=== PATIENT | male | born 1945 | race Caucasian/White ===

== ENCOUNTER 2016-04-18 09:01 | Emergency (ER) | payer MEDICARE, OTHER ==
--- NOTE | 2016-04-18 10:20 | UC ---
Upper Extremity HPI - HPI Summary HPI Summary: had a polyvalent pneumococcal vaccine 3d ago. Had redness and swelling within 8 hrs, this has increased over the following days. Mildly painful, feels very hot , hurts to move arm around. He has had fever to 100.8, but also has had some mild cold symptoms. He did get another pneumococcal vaccine last year, but was advised to get this one that covered more strains - History of Current Complaint Chief Complaint: Nola Stated Complaint: LT ARM SWELLING Time Seen by Provider: 04/18/16 09:41 Hx Obtained From: Patient Onset/Duration: Gradual Onset, Lasting Days - 3 Severity Initially: Mild Severity Currently: Mild Location Of Pain: Is Discrete @ - left upper arm Character: Dull, Aching, Stiffness Aggravating Factor(s): Flexion, Extension, Abduction Alleviating Factor(s): Ice, OTC Meds Associated Signs And Symptoms: Positive: Swelling, Redness - Allergies/Home Medications Allergies/Adverse Reactions: Allergies Allergy/AdvReac Type Severity Reaction Status Date / Time Morphine Allergy Rash And Verified 04/18/16 09:54 Itching PMH/Surg Hx/FS Hx/Imm Hx Endocrine History Of: Reports: Thyroid Disease Cardiovascular History Of: Reports: Hypertension - Surgical History Surgical History: Yes Surgery Procedure, Year, and Place: L4-5 spinal surgery 1995. Thyroidectomy 1994. R knee ACL repair 2009 - Family History Known Family History: Negative: Hypertension - Social History Occupation: Retired Lives: With Family Alcohol Use: Daily Alcohol Amount: "a drink or 2 every day" Substance Use Type: None Smoking Status (MU): Never Smoked Tobacco Review of Systems Constitutional: Fever - to 100.8, Chills Skin: Other - redness Eyes: Negative ENT: Negative Respiratory: Negative Cardiovascular: Negative Gastrointestinal: Negative Genitourinary: Negative Motor: Negative Neurovascular: Negative Musculoskeletal: Negative Neurological: Negative Psychological: Negative All Other Systems Reviewed And Are Negative: Yes Physical Exam Triage Information Reviewed: Yes Appearance: Well-Appearing, No Pain Distress, Well-Nourished Vital Signs: Initial Vital Signs Temp 98.0 F 04/18/16 09:56 Pulse 63 04/18/16 09:56 Resp 16 04/18/16 09:56 BP 129/61 04/18/16 09:56 Pulse Ox 100 04/18/16 09:56 Vital Signs Reviewed: Yes Eye Exam: Normal Neck exam: Normal Respiratory Exam: Normal Cardiovascular Exam: Normal Musculoskeletal Exam: Normal Neurological Exam: Normal Psychological Exam: Normal Skin Exam: Other - left upper arm with large patch of reddened, slightly swollen skin from deltoid to elbow. Not circumferential, just on outside of arm. Increased warmth. Mild tenderness to palpation. Can't see where the injection site was, no drainage Upper Extremity Course/Dx - Course Course Of Treatment: Most consistent with inflammatory reaction to vaccine. However, he has had fever and notes increasing redness. He will monitor the area , start antibiotic only if redness progresses along with fever. Otherwise, Motrin and ice - Differential Dx/Diagnosis Provider Diagnoses: inflammatory reaction to vaccination Discharge - Discharge Plan Condition: Stable Disposition: HOME Prescriptions: Sulfamethox/Trimethoprim DS* [Bactrim DS 800/160 TAB*] 1 tab PO BID #20 tab Referrals: Emmanuel Bobby DO [Primary Care Provider] - Additional Instructions: Your arm redness and swelling and tenderness is most consistent with a very brisk inflammatory reaction to the pneumococcal vaccine. This is a good sign that your body is building immunity against this cause of pneumonia. Sometimes injection sites can get infected. If you continue to have worsening pain, swelling, redness, or have consistent fevers or vomiting, then the possibility of infection is greater. In that case, start the antibiotic. If the redness fades away over the next few days, you don't need the antibiotic. Put ice on the area and take ibuprofen 600 mg two or three times a day.
[2016-04-18 10:22] VITALS: BP 129/61
== END 2016-04-18 10:25 | disposition home or self-care (01) ==
LOC: UCCORT 09:01
DX: T88.1XXA Other complications following immunization, not elsewhere classified, initial encounter (principal); M79.89 Other specified soft tissue disorders; R50.9 Fever, unspecified; T50.A95A Adverse effect of other bacterial vaccines, initial encounter; Y84.8 Other medical procedures as the cause of abnormal reaction of the patient, or of later complication, without mention of misadventure at the time of the procedure; E07.9 Disorder of thyroid, unspecified; I10 Essential (primary) hypertension; Z88.5 Allergy status to narcotic agent
CPT/HCPCS: 99212; G0463

== ENCOUNTER 2017-08-05 14:29 | Emergency (ER) | payer MEDICARE, OTHER ==
--- OUTSIDE RECORDS SUMMARY | 2017-08-05 14:51 | XMS REPORT ---
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 Payers Type Date Identification Numbers Payment Provider Subscriber Medicare Primary Effective: Policy Number: Medicare Isidro Zuluaga 2012 [id number] PayID: [id number] [address] [place] [address] Medigap Part B Policy Number: Lifetime Benefit Miguel Zuluaga [id number] Solution Group Number: [id number] [address] PayID: [place] [address] Workers Compensation Onset: 2004 Policy Number: [facility] Isidro Zuluaga [id number] [address] Commercial Effective: 2003 Policy Number: [facility] [place] Not Martinene Lyle Zuluaga [id number] Use Expires: 2014 Group Number: [id number] [address] PayID: [id number] [address] Problems Date Description Provider Status Onset: 10/02/2012 Impotence of organic origin Emmanuel Bobby DO Active Onset: 06/09/2007 Spinal stenosis in cervical region Eulogio oJe MD Active Onset: 06/14/2005 Toxic uninodular goiter Eulogio Joe MD Active Onset: 12/14/2004 Family history of malignant neoplasm of Eulogio Joe MD Active gastrointestinal tract Onset: 06/08/2004 Benign essential hypertension Eulogio Joe MD Active Onset: 06/08/2004 Strain of supraspinatus muscle AND/OR Eulogio Joe MD Active tendon Onset: 06/08/2004 Gastroesophageal reflux disease Eulogio Joe MD Active Onset: 06/08/2004 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 Mother Cancer, Colon age 60's onset. age 80's dementia Mother Alzheimer's Disease Children 2 Siblings None Social History Type Date Description Comments Marital Status Occupation Retired currently parttime/seasonal temporary for [employer]. initial retired.04/24.working 10-12 months/year. Cigarette Use Former Cigarette Smoker Smoking Patient is a former smoker Allergies, Adverse Reactions, Alerts Date Description Reaction Status Severity Comments 06/08/2004 Morphine active Medications Medication Date Status Form Strength Qnty SIG Indications Ordering Provider Prednisone 07/25/ Active Tablets 10mg 60tabs 2 tablets M35.3 Kaminski, 2017 by mouth Micheal, daily DO Tizanidine HCL 06/27/ Active Capsules 2mg 28caps 2 capusles M54.31 Kaminski, 2017 by mouth Micheal, at bedtime DO Naproxen 06/27/ Active Tablets 500mg 30tabs 1 tablet M54.31 Kaminski, 2017 by mouth Micheal, twice DO daily with food Tumeric 04/21/ Active Kaminski, 2017 Micheal, DO Probiotic 04/21/ Active Capsules Gordy, Acidophilus 2017 Micheal, DO Multivitamins 07/19/ Active Capsules 1 by mouth Kanu, 2014 every day DO Emmanuel Saw [place] 07/19/ Active Capsules 160mg 30caps every day N40.1 Kanu , 2014 DO Emmanuel Meet Red Fish 07/19/ Active 1 Tablet E78.1 Kanu, Oil 2014 By Mouth Emmanuel, Daily. DO Lisinopril 05/02/ Active Tablets 30mg 90tabs take one I10 Gordy 2014 tablet by essence Burton DO every day Viagra 06/08/ Active Tablets 50mg 18tabs take one N52.9 Gordy 2004 tablet by Micheal, mouth if DO needed Aspirin Low / Active Chewtabs 81mg 1 PO qd Kanu, Dose 0000 Emmanuel, DO Prednisone 07/15/ Hx Tablets 10mg 6tabs 2 tablets Kaminski, 2017 - by mouth Micheal, 07/25/ for 3 days DO 2017 Prednisone 07/11/ Hx Tablets 10mg 54tabs 6 tablets Kaminski, 2017 - by mouth x Micheal, 07/25/ 3 days DO 2017 then decrease by 1 pill every 3 days until gone Prednisone 06/30/ Hx Tablets 10mg 21tabs 6 tablets Kaminski, 2017 - by mouth Micheal, 07/06/ for 1 day DO 2017 then decrease by 1 tablet daily until gone Omeprazole 12/11/ Hx Capsules 20mg 90caps Take One K21.9 Kanu 2015 - DR Capsule By Emmanuel, 04/15/ Mouth DO 2016 Every Day Naproxen Sodium 09/17/ Hx Tablets 550mg 60tabs take one M54.2 Kanu 2015 - tablet by Emmanuel, 04/21/ mouth DO 2017 twice a day with food prn Omeprazole 06/08/ Hx Capsules 20mg 90caps take one Kanu 2004 - capsule by Emmanuel, 10/12/ mouth DO 2015 every day Immunizations CPT Code Status Date Vaccine Reaction Lot # [id number] Given 04/15/2016 Pneumococcal 23 Immunization Im inj completed, Pt [id number] Adult Or Immunosuppressed tolerated well Patient 60903 Given 03/25/2015 Prevnar 13 Pneumococal Im inj completed, Pt [id number] Conjugate Vaccine tolerated well 52066 Given 07/05/2012 Zoster (Zostavax) Given At Pharmacy RA/222 66604 Given 09/17/2011 Tdap (Adacel) Ages 7 And Above Only 15352 Given 12/14/2004 Afluria Or Fluvirin Flu Vac Intramuscular 22026 Given 09/22/2003 Tetanus And Diptheria Toxoids For Adult Use-preservative free Vital Signs Date Vital Result Comment 07/25/2017 Weight 185.00 lb Heart Rate 68 /min BP Systolic 140 mmHg BP Diastolic 70 mmHg Respiratory Rate 18 /min Height 68 inches 5'8" BMI (Body Mass Index) 28.1 kg/m2 07/11/2017 Body Temperature 98.1 F Weight 186.00 lb Heart Rate 68 /min BP Systolic 120 mmHg BP Diastolic 68 mmHg Respiratory Rate 18 /min Height 68 inches 5'8" BMI (Body Mass Index) 28.3 kg/m2 06/27/2017 Weight 189.00 lb Heart Rate 64 /min BP Systolic 130 mmHg BP Diastolic 82 mmHg Respiratory Rate 18 /min Height 68 inches 5'8" BMI (Body Mass Index) 28.7 kg/m2 04/21/2017 Weight 184.00 lb Heart Rate 70 /min BP Systolic 140 mmHg BP Diastolic 80 mmHg BP Systolic Recheck 130 mmHg BP Diastolic Recheck 76 mmHg Respiratory Rate 18 /min Height 68 inches 5'8" BMI (Body Mass Index) 28.0 kg/m2 10/13/2016 Weight 185.38 lb Heart Rate 68 /min 72 Reg BP Systolic 126 mmHg BP Diastolic 76 mmHg BP Systolic Recheck 128 mmHg BP Diastolic Recheck 78 mmHg Respiratory Rate 18 /min Height 68 inches 5'8" BMI (Body Mass Index) 28.2 kg/m2 04/15/2016 Weight 183.00 lb Heart Rate 78 /min 72 Reg BP Systolic 110 mmHg BP Diastolic 72 mmHg BP Systolic Recheck 120 mmHg BP Diastolic Recheck 72 mmHg Respiratory Rate 18 /min Height 68 inches 5'8" BMI (Body Mass Index) 27.8 kg/m2 10/13/2015 Weight 183.00 lb Heart Rate 72 /min 72 Reg BP Systolic 150 mmHg BP Diastolic 82 mmHg BP Systolic Recheck 120 mmHg BP Diastolic Recheck 80 mmHg Respiratory Rate 18 /min 09/18/2015 Weight 180.56 lb Heart Rate 68 /min BP Systolic 110 mmHg BP Diastolic 70 mmHg Respiratory Rate 18 /min 03/25/2015 Weight 185.06 lb Heart Rate 78 /min BP Systolic 134 mmHg BP Diastolic 80 mmHg BP Systolic Recheck 120 mmHg BP Diastolic Recheck 80 mmHg Respiratory Rate 18 /min Height 67.25 inches 5'7.25" BMI (Body Mass Index) 28.8 kg/m2 07/19/2014 Weight 183.00 lb Heart Rate 66 /min 72 Reg BP Systolic 134 mmHg BP Diastolic 72 mmHg BP Systolic Recheck 122 mmHg BP Diastolic Recheck 78 mmHg Respiratory Rate 18 /min 02/07/2014 BP Systolic 120 mmHg BP Diastolic 80 mmHg 02/07/2014 Weight 194.00 lb Heart Rate 78 /min 72 Reg BP Systolic 130 mmHg BP Diastolic 80 mmHg Respiratory Rate 18 /min Height 68 inches 5'8" 10/05/2013 BP Systolic 130 mmHg BP Diastolic 80 mmHg 10/05/2013 Weight 188.00 lb Heart Rate 66 /min 72 Reg BP Systolic 132 mmHg BP Diastolic 88 mmHg Respiratory Rate 18 /min Results Test Date Test Result H/L Range Note Laboratory test finding 07/11/2017 Ebv Early Ag Igg NEGATIVE (Neg) 1 Ebv Nuclear Ag Igg POSITIVE (Neg) 2 Ebv Vca Igg POSITIVE (Neg) 3 Ebv Vca Igm NEGATIVE (Neg) 4 Anti-Streptolysn O <200 IU/mL (0-200) 5 Laboratory test finding 07/11/2017 Esr 27 mm/hr High 0-15 CRP (C-Reactive) 5.10 mg/dL High 0.00-0.75 TSH 1.61 uIU/mL 0.35-4.94 Vitamin D 25 Hydroxy 30 ng/mL 30-100 6 Comprehensive Met Panel-[facility] 07/11/2017 Sodium 141 mmol/L 135-146 7 Potassium 4.2 mmol/L 3.5-5.2 Chloride# 104 mmol/L 97-110 8 Carbon Dioxide 28 mmol/L 24-34 Glucose 133 mg/dL High 70-105 BUN 15 mg/dL 6-26 Creatinine 0.8 mg/dL 0.5-1.4 Calcium 8.9 mg/dL 8.5-10.2 Total Protein 6.3 g/dL 6.0-8.0 Albumin 3.7 g/dL 3.6-4.9 Globulin 2.6 g/dL 2.0-3.5 A/G Ratio 1.4 Ratio 1.0-2.2 Total Bilirubin 0.4 mg/dL 0.1-1.3 Alkaline Phosphatase 72 U/L 24-140 Alt 12 U/L 3-42 Ast 12 U/L 8-42 Christina Egfr >60 >60 9 Non Christina Egfr >60 >60 10 Anion Gap 9 mmol/L 5-15 11 Lyme Igm/Igg AB -RL 07/11/2017 Lyme Igm/Igg AB @ NEGATIVE (Neg) 12 Laboratory test finding 07/11/2017 Uric Acid 5.4 mg/dL 2.6-8.4 Lyme Igm/Igg AB -RL 06/27/2017 Lyme Igm/Igg AB @ NEGATIVE (Neg) 13 [facility] 06/27/2017 WBC 8.3 K/uL 4.1-11.0 RBC 4.87 M/uL 4.60-6.10 Hemoglobin 14.4 gm/dL 13.5-18.0 Hematocrit 42.5 % 41.0-53.0 MCV 87.3 fL 80.0-97.0 MCH 29.5 pg 27.0-32.0 MCHC 33.8 g/dL 32.0-36.0 RDW 13.6 % 11.5-14.5 PLT Count 268 K/ul 140-400 MPV 8.0 FL 7.1-10.7 Neutrophil 65.6 % 35.0-75.0 Lymphocyte 23.7 % 16.0-52.0 Monocyte 9.1 % 2.0-10.0 Eosinophil 1.2 % 0.0-5.0 Basophil 0.4 % 0.0-4.0 Abs Neutrophils 5.4 K/uL 2.1-8.0 Abs Lymphocytes 2.0 K/uL 0.8-5.5 Abs Monocytes 0.7 K/uL 0.1-1.0 Abs Eosinophils 0.1 K/uL 0.0-0.5 Abs Basophils 0.0 K/uL 0.0-0.3 Laboratory test finding 06/27/2017 Esr 46 mm/hr High 0-15 CRP (C-Reactive) 4.28 mg/dL High 0.00-0.75 CCP Antibody Igg Negative Negative Rheumatoid Factor <10.0 IU/mL 0.0-10.0 Comprehensive Met Panel-[facility] 06/27/2017 Sodium 142 mmol/L 135-146 14 Potassium 4.0 mmol/L 3.5-5.2 Chloride# 104 mmol/L 97-110 15 Carbon Dioxide 29 mmol/L 24-34 Glucose 104 mg/dL 70-105 BUN 15 mg/dL 6-26 Creatinine 0.8 mg/dL 0.5-1.4 Calcium 9.1 mg/dL 8.5-10.2 Total Protein 6.6 g/dL 6.0-8.0 Albumin 4.1 g/dL 3.6-4.9 Globulin 2.5 g/dL 2.0-3.5 A/G Ratio 1.6 Ratio 1.0-2.2 Total Bilirubin 0.5 mg/dL 0.1-1.3 Alkaline Phosphatase 66 U/L 24-140 Alt 12 U/L 3-42 Ast 13 U/L 8-42 Christina Egfr >60 >60 16 Non Christina Egfr >60 >60 17 Anion Gap 9 mmol/L 5-15 18 Sravanthi Screen With Reflex-[facility] 06/27/2017 Sravanthi Screen NEGATIVE Negative dsDNA IgG 0.90 Negative 19 Hemoglobin A1c 04/08/2017 Hemoglobin A1c 5.4 % 4.1-5.9 20 Estimated Average Glucose Calc 108 mg/dL 71-140 20 Laboratory test finding 04/08/2017 PSA 2.010 ng/mL 0.000-4.000 20, 21 CBC With Auto Diff 04/08/2017 WBC 5.5 K/uL 4.1-11.0 20 RBC 4.99 M/uL 4.60-6.10 20 Hemoglobin 14.9 gm/dL 13.5-18.0 20 Hematocrit 43.7 % 41.0-53.0 20 MCV 87.6 fL 80.0-97.0 20 MCH 30.0 pg 27.0-32.0 20 MCHC 34.2 g/dL 32.0-36.0 20 RDW 13.7 % 11.5-14.5 20 PLT Count 221 K/ul 140-400 20 MPV 8.2 FL 7.1-10.7 20 Neutrophil 42.9 % 35.0-75.0 20 Lymphocyte 42.7 % 16.0-52.0 20 Monocyte 9.7 % 2.0-10.0 20 Eosinophil 4.2 % 0.0-5.0 20 Basophil 0.5 % 0.0-4.0 20 Abs Neutrophils 2.4 K/uL 2.1-8.0 20 Abs Lymphocytes 2.4 K/uL 0.8-5.5 20 Abs Monocytes 0.5 K/uL 0.1-1.0 20 Abs Eosinophils 0.2 K/uL 0.0-0.5 20 Abs Basophils 0.0 K/uL 0.0-0.3 20 Laboratory test finding 04/08/2017 TSH 2.43 uIU/mL 0.35-4.94 20 Free T4 0.96 ng/dL 0.70-1.48 20 Basic (BMP) 04/08/2017 Sodium 142 mmol/L 135-146 20, 22 Potassium 3.9 mmol/L 3.5-5.2 20 Chloride# 105 mmol/L 97-110 20, 23 Carbon Dioxide 30 mmol/L 24-34 20 Glucose 109 mg/dL High 70-105 20 BUN 17 mg/dL 6-26 20 Creatinine 0.9 mg/dL 0.5-1.4 20 Calcium 9.1 mg/dL 8.5-10.2 20 Non Christina Egfr >60 >60 20, 24 Christina Egfr >60 >60 20, 25 Anion Gap 7 mmol/L 5-15 20, 26 Lipid 04/08/2017 Cholesterol 171 mg/dL 50-199 20 Triglycerides 100 mg/dL 30-200 20 HDL 51 mg/dL 29-71 20, 27 Chol/ HDL Ratio 3.4 ratio Low 4.0-6.7 20 VLDL 20 mg/dL 2-29 20 LDL (Calc) 100 mg/dL High 20-99 20, 28 Basic (BMP) 10/06/2016 Sodium 142 mmol/L 135-146 20, 29 Potassium 4.0 mmol/L 3.5-5.2 20 Chloride# 107 mmol/L 97-110 20, 30 Carbon Dioxide 27 mmol/L 24-34 20 Glucose 114 mg/dL High 70-105 20 BUN 24 mg/dL 6-26 20 Creatinine 0.9 mg/dL 0.5-1.4 20 Calcium 9.0 mg/dL 8.5-10.2 20 Non Christina Egfr >60 >60 20, 31 Christina Egfr >60 >60 20, 32 Anion Gap 8 mmol/L 7-16 20, 33 CBC With Auto Diff 10/06/2016 WBC 5.8 K/uL 4.1-11.0 20 RBC 4.99 M/uL 4.60-6.10 20 Hemoglobin 14.5 gm/dL 13.5-18.0 20 Hematocrit 44.3 % 41.0-53.0 20 MCV 88.8 fL 80.0-97.0 20 MCH 29.0 pg 27.0-32.0 20 MCHC 32.7 g/dL 32.0-36.0 20 RDW 14.1 % 11.5-14.5 20 PLT Count 199 K/ul 140-400 20 Neutrophil 42.0 % 35.0-75.0 20 Lymphocyte 44.4 % 16.0-52.0 20 Monocyte 9.5 % 2.0-10.0 20 Eosinophil 3.4 % 0.0-5.0 20 Basophil 0.7 % 0.0-4.0 20 Abs Neutrophils 2.4 K/uL 2.1-8.0 20 Abs Lymphocytes 2.6 K/uL 0.8-5.5 20 Abs Monocytes 0.5 K/uL 0.1-1.0 20 Abs Eosinophils 0.2 K/uL 0.0-0.5 20 Abs Basophils 0.0 K/uL 0.0-0.3 20 Laboratory test finding 10/06/2016 TSH 3.21 uIU/mL 0.35-4.94 20 Free T4 0.77 ng/dL 0.70-1.48 20 Lipid 10/06/2016 Cholesterol 182 mg/dL 50-199 20 Triglycerides 99 mg/dL 30-150 20 HDL 53 mg/dL 40-71 20, 34 Chol/ HDL Ratio 3.4 ratio Low 4.0-6.7 20 VLDL 20 mg/dL 2-29 20 LDL (Calc) 109 mg/dL 20-129 20, 35 CBC With Auto Diff 04/08/2016 WBC 5.0 K/uL 4.1-11.0 20 RBC 4.89 M/uL 4.60-6.10 20 Hemoglobin 14.5 gm/dL 13.5-18.0 20 Hematocrit 42.9 % 41.0-53.0 20 MCV 87.7 fL 80.0-97.0 20 MCH 29.6 pg 27.0-32.0 20 MCHC 33.7 g/dL 32.0-36.0 20 RDW 13.5 % 11.5-14.5 20 PLT Count 208 K/ul 140-400 20 Neutrophil 41.4 % 35.0-75.0 20 Lymphocyte 45.5 % 16.0-52.0 20 Monocyte 8.8 % 2.0-10.0 20 Eosinophil 3.3 % 0.0-5.0 20 Basophil 1.0 % 0.0-4.0 20 Abs Neutrophils 2.1 K/uL 2.1-8.0 20 Abs Lymphocytes 2.3 K/uL 0.8-5.5 20 Abs Monocytes 0.4 K/uL 0.1-1.0 20 Abs Eosinophils 0.2 K/uL 0.0-0.5 20 Abs Basophils 0.0 K/uL 0.0-0.3 20 Basic (BMP) 04/08/2016 Sodium 137 mmol/L 134-142 20 Potassium 4.2 mmol/L 3.5-5.2 20 Chloride 105 mmol/L 97-109 20 Carbon Dioxide 27 mmol/L 24-34 20 Glucose 100 mg/dL 70-105 20 BUN 16 mg/dL 6-26 20 Creatinine 0.8 mg/dL 0.5-1.4 20 Calcium 8.8 mg/dL 8.5-10.2 20 Anion Gap 9 mmol/L 6-14 20 Non Christina Egfr >60 >60 20, 36 Christina Egfr >60 >60 20, 37 Laboratory test finding 04/08/2016 TSH 2.08 uIU/mL 0.35-4.94 20 Free T4 0.84 ng/dL 0.70-1.48 20 Lipid 04/08/2016 Cholesterol 161 mg/dL 50-199 20 Triglycerides 56 mg/dL 30-150 20 HDL 48 mg/dL 40-71 20, 38 Chol/ HDL Ratio 3.4 ratio Low 4.0-6.7 20 VLDL 11 mg/dL 2-29 20 LDL (Calc) 102 mg/dL 20-129 20, 39 Laboratory test finding 04/08/2016 PSA 0.880 ng/mL 0.000-4.000 20, 40 BMP (Basic) 02/24/2015 Glucose 101 mg/dL 74-106 BUN 11 mg/dL 7-18 Creatinine 0.9 mg/dL 0.6-1.3 Glom Filtration Rate, Estimate >60 mL/min >60 If >60 mL/min >60 41 BUN/Creat 12.2 ratio Sodium 140 mmol/L 136-145 Potassium 3.9 mmol/L 3.5-5.1 Chloride 106 mmol/L 98-107 Carbon Dioxide 30 mmol/L 21-32 Anion Gap 4 mEq/L Low 8-16 Calcium 8.2 mg/dL Low 8.5-10.1 Laboratory test finding 02/24/2015 Thyroid Stim Hormone 2.47 uIU/mL 0.36- 3.74 Free T4 0.87 ng/dL 0.76-1.46 Lipid Panel 02/24/2015 Cholesterol 178 mg/dL <200 42 Triglycerides 66 mg/dL <150 43 HDL Cholesterol 60 mg/dL >40 44 LDL-Cholesterol 105 mg/dL < 129 45 Laboratory test finding 02/24/2015 Prostate Specific Antigen 1.50 ng/mL 46 CBC With Auto Diff 02/24/2015 White Blood Count 4.9 K/uL 3.4-10.5 Red Blood Count 5.26 M/uL 4.20-5.80 Hemoglobin 15.7 gm/dL 12.8-17.0 Hematocrit 46.4 % 38.0-48.0 Mean Cell Volume 88.2 fl 80.0-96.0 Mean Corpuscular HGB 29.8 pg 27.0-33.0 Mean Corpuscular HGB Conc 33.8 g/dL 31.7-36.0 Platelet Count 208 K/uL 150-400 Red Cell Distri Width SD 44.7 fl 36-51 Red Cell Distri Width %CV 14.1 % 11.6-15.8 Mean Platelet Volume 10.0 fL 6.6-10.6 Neut% 44.0 % 33.0-73.0 Lymph % 44.0 % 17.0-56.0 [place] % 7.7 % 0.0-10.0 Eo% 3.5 % 0.0-5.0 Bas% 0.8 % 0.1-1.0 Neut# 2.16 K/uL 1.8-7.0 Lymph # 2.16 K/uL 1.8-7.0 [place] # 0.38 K/uL 0.0-0.8 Eos # 0.17 K/uL 0.0-0.5 Baso # 0.04 K/uL Low 0.1-0.2 CBC With Auto Diff 07/12/2014 WBC 4.9 K/uL 4.1-11.0 47 RBC 4.94 M/uL 4.60-6.10 47 Hemoglobin 14.8 gm/dL 13.5-18.0 47 Hematocrit 44.5 % 41.0-53.0 47 MCV 90.0 fL 80.0-97.0 47 MCH 29.9 pg 27.0-32.0 47 MCHC 33.3 g/dL 32.0-36.0 47 RDW 14.0 % 11.5-14.5 47 PLT Count 198 K/ul 140-400 47 Neutrophil 46.7 % 35.0-75.0 47 Lymphocyte 40.8 % 16.0-52.0 47 Monocyte 8.4 % 2.0-10.0 47 Eosinophil 3.5 % 0.0-5.0 47 Basophil 0.6 % 0.0-4.0 47 Abs Neutrophils 2.3 K/uL 2.1-8.0 47 Abs Lymphocytes 2.0 K/uL 0.8-5.5 47 Abmon 0.4 K/uL 0.1-1.0 47 Abs Eosinophils 0.2 K/uL 0.0-0.5 47 Abs Basophils 0.0 K/uL 0.0-0.3 47 Basic (BMP) 07/12/2014 Sodium 138 mmol/L 134-142 47 Potassium 4.1 mmol/L 3.5-5.2 47 Chloride 104 mmol/L 97-109 47 Carbon Dioxide 29 mmol/L 24-34 47 Glucose 101 mg/dL 70-105 47 BUN 17 mg/dL 6-26 47 Creatinine 0.9 mg/dL 0.5-1.4 47 Calcium 9.1 mg/dL 8.5-10.2 47 Anion Gap 9 mmol/L 6-14 47 Non Christina Egfr >60 >60 47, 48 Christina Egfr >60 >60 47, 49 Laboratory test finding 07/12/2014 TSH 2.64 uIU/mL 0.35-4.94 47 Free T4 0.84 ng/dL 0.70-1.48 47 Lipid 07/12/2014 Cholesterol 175 mg/dL 50-199 47 Triglycerides 52 mg/dL 30-150 47 HDL 55 mg/dL 40-71 47, 50 Chol/ HDL Ratio 3.2 ratio Low 4.0-6.7 47 VLDL 10 mg/dL 2-29 47 LDL (Calc) 110 mg/dL 20-129 47, 51 Laboratory test finding 09/28/2013 % Baso. 1.1 % 0.0-2.0 % Eos. 3.7 % 0.0-4.0 % Lymph 42 % 20-44 % [place] 7.6 % 2.0-10.0 % Leanna 46 % Low 50-70 Absolute Baso. 0.1 K/ul 0.0-0.3 Absolute Eos. 0.2 K/ul 0.0-0.5 Absolute Lymph. 2.6 K/ul 0.8-4.8 Absolute [place]. 0.5 K/ul 0.1-1.0 Absolute Leanna. 2.86 K/ul 2.05-7.63 BUN 19.0 mg/dL 9.0-21.0 BUN/Creat Ratio 23.8 ratio High 12.0-20.0 Calcium 9.1 mg/dL 8.7-10.5 Chloride 107.0 mmol/L 98.0-107.0 Co2 25.0 mmol/L 22.0-30.0 Creatinine-Serum 0.8 mg/dL 0.8-1.5 FT4 0.80 ng/dL 0.75-1.54 Glucose 110.0 mg/dL 75.0-110.0 HCT 46.9 % 37.0-51.0 HGB 15.4 Gm/dl 12.0-16.0 MCH 29.4 pg 26.0-32.0 MCHC 32.9 g/dL 31.0-36.0 MCV 89.6 Fl 80.0-97.0 MPV 6.9 fL 6.0-10.0 PLT 231 K/ul 140-440 PSA 0.8 ng/mL 0.0-4.0 Potasium 4.0 mmol/L 3.6-5.0 RBC 5.2 M/ul 4.2-6.3 RDW 12.7 % 11.5-14.5 Sodium 141.0 mmil/L 137.0-145.0 TSH 3.45 uIU/ml 0.50-6.00 WBC 6.2 K/ul 4.1-10.9 eGFR 103.1 Laboratory test finding 06/25/2013 % Baso. 1.2 % 0.0-2.0 % Eos. 2.5 % 0.0-4.0 % Lymph 41 % 20-44 % [place] 9.8 % 2.0-10.0 % Leanna 46 % Low 50-70 Absolute Baso. 0.1 K/ul 0.0-0.3 Absolute Eos. 0.2 K/ul 0.0-0.5 Absolute Lymph. 2.5 K/ul 0.8-4.8 Absolute [place]. 0.6 K/ul 0.1-1.0 Absolute Leanna. 2.81 K/ul 2.05-7.63 BUN 14.0 mg/dL 9.0-21.0 BUN/Creat Ratio 15.6 ratio 12.0-20.0 Calcium 9.5 mg/dL 8.7-10.5 Chloride 104.0 mmol/L 98.0-107.0 Co2 28.0 mmol/L 22.0-30.0 Creatinine-Serum 0.9 mg/dL 0.8-1.5 FT4 0.94 ng/dL 0.75-1.54 Glucose 110.0 mg/dL 75.0-110.0 HCT 48.3 % 37.0-51.0 HGB 15.9 Gm/dl 12.0-16.0 MCH 29.4 pg 26.0-32.0 MCHC 32.9 g/dL 31.0-36.0 MCV 89.4 Fl 80.0-97.0 MPV 6.4 fL 6.0-10.0 PLT 236 K/ul 140-440 Potasium 4.2 mmol/L 3.6-5.0 RBC 5.4 M/ul 4.2-6.3 RDW 12.6 % 11.5-14.5 Sodium 139.0 mmil/L 137.0-145.0 TSH 2.44 uIU/ml 0.50-6.00 WBC 6.1 K/ul 4.1-10.9 eGFR 90.0 Laboratory test finding 10/02/2012 Anion Gap 11 mEq/L 8-16 BUN 17 mg/dL 5-23 BUN/Creat 21.2 ratio Bas% 0.6 % 0.1-1.0 Baso # 0.04 K/uL Low 0.1-0.2 Calcium 8.7 mg/dL 8.5-10.1 Carbon Dioxide 28 mEq/L 18-29 Chloride 110 mmol/L High 98-107 Creatinine 0.8 mg/dL 0.5-1.4 Eo% 2.2 % 0.0-5.0 Eos # 0.16 K/uL 0.0-0.5 Free T4 0.94 ng/dL 0.71-1.85 Glom Filtration Rate, Estimate >60 mL/min >60 Glucose 85 mg/dL 76-115 Hematocrit 42.7 % 38.0-48.0 Hemoglobin 14.6 gm/dL 12.8-17.0 If >60 mL/min >60 52 Lymph # 2.60 K/uL 1.2-4.0 Lymph % 36.0 % 17.0-56.0 Magnesium 1.9 mg/dL 1.7-2.3 Mean Cell Volume 88.6 fl 80.0-96.0 Mean Corpuscular HGB 30.3 pg 27.0-33.0 Mean Corpuscular HGB Conc 34.2 g/dL 31.7-36.0 Mean Platelet Volume 10.7 fL High 6.6-10.6 [place] # 0.61 K/uL High 0.0-0.6 [place] % 8.4 % 0.0-10.0 Neut# 3.81 K/uL 1.8-7.0 Neut% 52.8 % 33.0-73.0 Platelet Count 233 K/uL 150-400 Potassium 3.9 mmol/L 3.5-5.1 Prostate-Specific Antigen 0.76 ng/mL 0.0-4.0 53 Red Blood Count 4.82 M/uL 4.20-5.80 Red Cell Distri Width %CV 13.4 % 11.6-15.8 Red Cell Distri Width SD 42.7 fl 36-51 Sodium 145 mmol/L 136-145 Thyroid Stim Hormone 3.10 uIU/mL 0.49-4.67 White Blood Count 7.2 K/uL 3.4-10.5 Testosterone,Free/Weakly 10/02/2012 Testosterone,%Free/Weakly 15.0 % 9.0- 46.0 Bound BND Testosterone,Free+Weakly Bound 40.0 ng/dL 40.0-250.0 54 Testosterone,Serum 267 ng/dL Low 348-1197 1 Unless otherwise specified, testing performed by [facility] [place] [address] 2 May indicate a current or previous infection. Unless otherwise specified, testing performed by [facility] [place] [address] 3 May indicate a current or previous infection. Unless otherwise specified, testing performed by [facility] [place] [address] 4 Unless otherwise specified, testing performed by [facility] [address] [place] [address] 5 Unless otherwise specified, [place] [address] 6 Clinical Guidelines for recommended serum 25(OH)Vitamin D Deficient at less than 20 ng/mL Insufficient at 20 to <30 ng/mL Sufficient at 30-100 ng/mL Toxicity at greater than 100 ng/mL 7 Updated reference range on new analyzer 8 Updated reference range on new analyzer 9 Concerning GFR Guidelines for Americans: Normal function or mild renal disease, if clinically at risk: >/=60 mL/min Moderately decreased: 30-59 Severely decreased: 15-29 Renal failure: <15 10 Concerning GFR Guidelines: Normal function or mild renal disease, if clinically at risk: >/=60 mL/min Moderately decreased: 30-59 Severely decreased: 15-29 Renal failure: <15 Glomerular Filtration Rate (GFR) is estimated based on the MDRD equation, which assumes a steady state for creatinine as recommended by the National Kidney Disease Education Program in conjunction with the National Institutes of Health and the National Kidney Foundation. Clinical conditions in which it may be necessary to measure GFR by using clearance methods include extremes of age and body size, severe malnutrition or obesity, diseases of skeletal muscle, paraplegia or quadriplegia, vegetarian diet, rapidly changing kidney function, and calculation of the dose of potentially toxic drugs that are excreted by the kidneys. 11 Updated Reference Range 12 A Negative serologic test for Lyme Disease indicates no serologic evidence of infection with B burgdorferi at the time this specimen was collected. A repeat specimen should be collected in 2 to 4 weeks if clinically indicated. Unless otherwise specified, [place] [address] 13 A Negative serologic test for Lyme Disease indicates no serologic evidence of infection with B burgdorferi at the time this specimen was collected. A repeat specimen should be collected in 2 to 4 weeks if clinically indicated. Unless otherwise specified, [place] [address] 14 Updated reference range on new analyzer 15 Updated reference range on new analyzer 16 Concerning GFR Guidelines for Americans: Normal function or mild renal disease, if clinically at risk: >/=60 mL/min Moderately decreased: 30-59 Severely decreased: 15-29 Renal failure: <15 17 Concerning GFR Guidelines: Normal function or mild renal disease, if clinically at risk: >/=60 mL/min Moderately decreased: 30-59 Severely decreased: 15-29 Renal failure: <15 Glomerular Filtration Rate (GFR) is estimated based on the MDRD equation, which assumes a steady state for creatinine as recommended by the National Kidney Disease Education Program in conjunction with the National Institutes of Health and the National Kidney Foundation. Clinical conditions in which it may be necessary to measure GFR by using clearance methods include extremes of age and body size, severe malnutrition or obesity, diseases of skeletal muscle, paraplegia or quadriplegia, vegetarian diet, rapidly changing kidney function, and calculation of the dose of potentially toxic drugs that are excreted by the kidneys. 18 Updated Reference Range 19 Interpretation: <0.5 -9 IU/ml Negative 10-15 IU/ml Equivocal >15.0 IU/ml Positive 20 SCHEDULE 1 WEEK PRIOR TO NEXT VISIT 21 Beginning 04/18/06 PSA values assayed at [facility] [employer] uses chemiluminescence methodology manufactured by [employer] for use on the DXI analyzer. Values obtained with different assay methods or kits can not be used interchangeably. Serum PSA measurement is not an absolute test for malignancy. The PSA value should be used in conjunction with information available from clinical evaluation and other diagnostic procedures. 22 Updated reference range on new analyzer 23 Updated reference range on new analyzer 24 Concerning GFR Guidelines: Normal function or mild renal disease, if clinically at risk: >/=60 mL/min Moderately decreased: 30-59 Severely decreased: 15-29 Renal failure: <15 Glomerular Filtration Rate (GFR) is estimated based on the MDRD equation, which assumes a steady state for creatinine as recommended by the National Kidney Disease Education Program in conjunction with the National Institutes of Health and the National Kidney Foundation. Clinical conditions in which it may be necessary to measure GFR by using clearance methods include extremes of age and body size, severe malnutrition or obesity, diseases of skeletal muscle, paraplegia or quadriplegia, vegetarian diet, rapidly changing kidney function, and calculation of the dose of potentially toxic drugs that are excreted by the kidneys. 25 Concerning GFR Guidelines for Americans: Normal function or mild renal disease, if clinically at risk: >/=60 mL/min Moderately decreased: 30-59 Severely decreased: 15-29 Renal failure: <15 26 Updated Reference Range 27 Per NCEP ATP III Guidelines: Results lower than 40 mg/dL are suggestive of increased risk for coronary artery disease. Results > or=to 60 mg/dL are considered a negative risk factor. 28 Per NCEP ATP III Guidelines: Normal Population <130 Patients with medical conditions: CHD/DM Optimal: <100 Borderline high: 130-159 High: 160-189 Very high: >189 29 Updated reference range on new analyzer 30 Updated reference range on new analyzer 31 Concerning GFR Guidelines: Normal function or mild renal disease, if clinically at risk: >/=60 mL/min Moderately decreased: 30-59 Severely decreased: 15-29 Renal failure: <15 Glomerular Filtration Rate (GFR) is estimated based on the MDRD equation, which assumes a steady state for creatinine as recommended by the National Kidney Disease Education Program in conjunction with the National Institutes of Health and the National Kidney Foundation. Clinical conditions in which it may be necessary to measure GFR by using clearance methods include extremes of age and body size, severe malnutrition or obesity, diseases of skeletal muscle, paraplegia or quadriplegia, vegetarian diet, rapidly changing kidney function, and calculation of the dose of potentially toxic drugs that are excreted by the kidneys. 32 Concerning GFR Guidelines for Americans: Normal function or mild renal disease, if clinically at risk: >/=60 mL/min Moderately decreased: 30-59 Severely decreased: 15-29 Renal failure: <15 33 Updated reference range on new analyzer 34 Per NCEP ATP III Guidelines: Results lower than 40 mg/dL are suggestive of increased risk for coronary artery disease. Results > or=to 60 mg/dL are considered a negative risk factor. 35 Per NCEP ATP III Guidelines: Normal Population <130 Patients with medical conditions: CHD/DM Optimal: <100 Borderline high: 130-159 High: 160-189 Very high: >189 36 Concerning GFR Guidelines: Normal function or mild renal disease, if clinically at risk: >/=60 mL/min Moderately decreased: 30-59 Severely decreased: 15-29 Renal failure: <15 Glomerular Filtration Rate (GFR) is estimated based on the MDRD equation, which assumes a steady state for creatinine as recommended by the National Kidney Disease Education Program in conjunction with the National Institutes of Health and the National Kidney Foundation. Clinical conditions in which it may be necessary to measure GFR by using clearance methods include extremes of age and body size, severe malnutrition or obesity, diseases of skeletal muscle, paraplegia or quadriplegia, vegetarian diet, rapidly changing kidney function, and calculation of the dose of potentially toxic drugs that are excreted by the kidneys. 37 Concerning GFR Guidelines for Americans: Normal function or mild renal disease, if clinically at risk: >/=60 mL/min Moderately decreased: 30-59 Severely decreased: 15-29 Renal failure: <15 38 Per NCEP ATP III Guidelines: Results lower than 40 mg/dL are suggestive of increased risk for coronary artery disease. Results > or=to 60 mg/dL are considered a negative risk factor. 39 Per NCEP ATP III Guidelines: Normal Population <130 Patients with medical conditions: CHD/DM Optimal: <100 Borderline high: 130-159 High: 160-189 Very high: >189 40 Beginning 04/18/06 PSA values assayed at [employer] uses chemiluminescence methodology manufactured by [employer] for use on the DXI analyzer. Values obtained with different assay methods or kits can not be used interchangeably. Serum PSA measurement is not an absolute test for malignancy. The PSA value should be used in conjunction with information available from clinical evaluation and other diagnostic procedures. 41 Note: Persistent reduction for 3 months or more in an eGFR <60 mL/min/1.73 m2 defines CKD. Patients with eGFR values >/=60 mL/min/1.73 m2 may also have CKD if evidence of persistent proteinuria is present. The original MDRD equation for estimated GFR is not valid for patients less than 18 years of age. Additional information may be found at www.kdoqi.org. 42 Reference Guidelines*: Desirable: ........... < 200 mg/dL Borderline High: ..... 200-239 mg/dL High: ................ >=240 mg/dL * The National Cholesterol Education Program (NCEP) 43 Reference Guidelines*: Normal: ............. < 150 mg/dL Borderline High: .... 150-199 mg/dL High: ............... 200-499 mg/dL Very High: .......... > 500 mg/dL * Source: National Cholesterol Education Program (NCEP) 44 Reference Guidelines*: Low HDL: ..... < 40 mg/dL Normal: ..... 40-60 mg/dL Desirable: ... > 60 mg/dL *The National Cholesterol Education Program(NCEP) 45 Reference Guidelines*: Optimal:........... <100 mg/dL Near Optimal....... 100-129 mg/dL Borderline High.... 130-159 mg/dL High............... 160-189 mg/dL Very High.......... >=190 mg/dL * Source: National Cholesterol Education Program (NCEP) 46 THIS ASSAY IS NOT INTENDED A CANCER SCREENING TEST The concentration of PSA in a given specimen, determined with assays from different manufacturers, can vary due to differences in assay methods and reagent specificity. Values obtained from different assay methods cannot be used interchangeably. 47 schedule 1 week prior to next visit 48 Concerning GFR Guidelines: Normal function or mild renal disease, if clinically at risk: >/=60 mL/min Moderately decreased: 30-59 Severely decreased: 15-29 Renal failure: <15 Glomerular Filtration Rate (GFR) is estimated based on the MDRD equation, which assumes a steady state for creatinine as recommended by the National Kidney Disease Education Program in conjunction with the National Institutes of Health and the National Kidney Foundation. Clinical conditions in which it may be necessary to measure GFR by using clearance methods include extremes of age and body size, severe malnutrition or obesity, diseases of skeletal muscle, paraplegia or quadriplegia, vegetarian diet, rapidly changing kidney function, and calculation of the dose of potentially toxic drugs that are excreted by the kidneys. 49 Concerning GFR Guidelines for Americans: Normal function or mild renal disease, if clinically at risk: >/=60 mL/min Moderately decreased: 30-59 Severely decreased: 15-29 Renal failure: <15 50 Per NCEP ATP III Guidelines: Results lower than 40 mg/dL are suggestive of increased risk for coronary artery disease. Results > or=to 60 mg/dL are considered a negative risk factor. 51 Per NCEP ATP III Guidelines: Normal Population <130 Patients with medical conditions: CHD/DM Optimal: <100 Borderline high: 130-159 High: 160-189 Very high: >189 52 Note: Persistent reduction for 3 months or more in an eGFR <60 mL/min/ 1.73 m2 defines CKD. Patients with eGFR values >/=60 mL/min/1.73 m2 may also have CKD if evidence of persistent proteinuria is present. The original MDRD equation for estimated GFR is not valid for patients less than 18 years of age. Additional information may be found at www.kdoqi.org. 53 THIS ASSAY IS NOT INTENDED A CANCER SCREENING TEST The concentration of PSA in a given specimen, determined with assays from different manufacturers, can vary due to differences in assay methods and reagent specificity. Values obtained from different assay methods cannot be used interchangeably. 54 Performed at: - [facility] [id number] [employer]: Ro Gonzalez MD, Phone: [phone] Performed at: [facility] [id number] [employer]: Bishop Sandra MD, Phone: [phone] Procedures Date CPT Code Description Status Comment 03/29/2017 Colonoscopy Completed Document: 03/29/17 - Colonoscopy 09/18/2015 23275 X-Ray Knee Complete Completed W/Obliques & Tunnel And/Or Standing Views Encounters Type Date Location Provider CPT E/M Dx Office Visit 07/11/2017 8:15[place] [address] M25.512 M25.511 M25.551 M25.552 R53.83 Z68.28 Office Visit 06/27/2017 8:15a [place] [address] M25.512 M25.511 M25.551 M25.552 M54.31 Z68.28 Office Visit 04/21/2017 10:00a [place] G0439 Z00.00 I10 N52.9 R73.09 M54.2 Z68.28 Office Visit 10/13/2016 9:00a [facility] [address] I10 E05.10 E78.1 N52.9 K21.9 D12.6 H91.93 R73.09 Office Visit 04/15/2016 8:00a [facility] [address] I10 E05.10 E78.1 N52.9 K21.9 D12.6 H91.93 Z12.5 Z00.00 Z23 Z68.27 Office Visit 10/13/2015 8:00a [facility] [address] I10 E05.10 E78.1 N52.9 K21.9 D12.6 H91.93 Office Visit 09/18/2015 11:00a [facility] [address] M54.2 M25.562 Office Visit 03/25/2015 2:00p [facility] [place] G[address] Z00.00 Z12.5 I10 E05.10 E78.1 N52.9 K21.9 D12.6 Z23 Z68.28 Office Visit 07/19/2014 9:45a [facility] [address] 401.1 242.10 272.1 607.84 530.81 211.3 723.4 724.4 Plan of Care Future Appointment(s):04/24/2018 8:30 am - Treasure Panda PA at [facility]2017 8:30 am - Treasure Panda PA at [facility]07/25/2017 - Treasure Panda, PAM35.3 Polymyalgia rheumaticaNew Medication:Prednisone 10 mgNew Labs:EsrCRP (C-Reactive )Comprehensive Met Panel-FCMGComments:Suspect PMR, but has not noticed substantial improvement with prednisoneWill continue at 20 mg prednisone and gradually taper downWill refer to rheumatologyCall with questions/ concernsReferral:Maria G Reyes DR, RheumatologyFollow up:2 months for labsZ68.28 Body mass index (BMI) 28.0-28.9, adult
--- OUTSIDE RECORDS SUMMARY | 2017-08-05 14:52 | XMS REPORT ---
:1945 External Reference #:[id number] Author Organization [facility] Address [address] [address] Phone [phone] Care Team Providers Name Role Phone Treasure Panda PA Care Team Information Director Financial Services Unavailable Payers Type Date Identification Numbers Payment Provider Subscriber Medicare Primary Effective: Policy Number: Medicare Isidro Zuluaga 2012 [id number] PayID: [id number] [address] [place] [address] Medigap Part B Policy Number: Lifetime Benefit Miguel Zuluaga [id number] Solution Group Number: [id number] [address] PayID: [place] [address] Workers Compensation Onset: 2004 Policy Number: [facility] Isidro Zuluaga [id number] [address] Commercial Effective: 2003 Policy Number: [facility] DO Not Miguel Zuluaga [id number] Use Expires: 2014 Group Number: [id number] [address] PayID: [id number] [address] Problems Date Description Provider Status Onset: 10/02/2012 Impotence of organic origin Emmanuel Bobby DO Active Onset: 06/09/2007 Spinal stenosis in cervical region Eulogio Joe MD Active Onset: 06/14/2005 Toxic uninodular goiter [...] Form Strength Qnty SIG Indications Ordering Provider Tizanidine HCL 06/27/ Active Capsules 2mg 28caps 2 capusles M54.31 Kaminski, 2017 by mouth Micheal, at bedtime DO Naproxen 06/27/ Active Tablets 500mg 30tabs 1 tablet M54.31 Kaminski, 2017 by mouth Micheal, twice DO daily with food Tumeric 04/21/ Active Kaminski, 2017 Micheal, DO Probiotic 04/21/ Active Capsules Kaminski, Acidophilus 2017 Micheal, DO Multivitamins 07/19/ Active Capsules 1 by mouth Kanu, 2014 every day DO Emmanuel Saw [place] 07/19/ Active Capsules 160mg 30caps every day N40.1 Kanu , 2014 DO Emmanuel Meet [place] 07/19/ Active 1 Tablet E78.1 Kanu, Oil 2014 By Mouth Emmanuel, Daily. DO Lisinopril 05/02/ Active Tablets 30mg 90tabs take one I10 Gordy 2014 tablet by essence Burton DO every day Viagra 06/08/ Active Tablets 50mg 18tabs take one N52.9 Gordy 2004 tablet by essence Burton if DO needed Aspirin Low / Active Chewtabs 81mg 1 PO qd Kanu, Dose 0000 Emmanuel, Prednisone 06/30/ Hx Tablets 10mg 21tabs 6 tablets Gordy, 2017 - by mouth Micheal 07/06/ for 1 day DO 2017 then decrease by 1 tablet daily until gone Omeprazole 12/11/ Hx Capsules 20mg 90caps Take One K21.9 Kanu, 2015 - DR Capsule By Emmanuel, 04/15/ Mouth DO 2016 Every Day Naproxen Sodium 09/17/ Hx Tablets 550mg 60tabs take one M54.2 Kanu, 2015 - tablet by Emmanuel, 04/21/ mouth DO 2017 twice a day with food prn Omeprazole 06/08/ Hx Capsules 20mg 90caps take one Kanu 2004 - DR capsule by Emmanuel, 10/12/ mouth DO 2015 every day Immunizations CPT Code Status Date Vaccine Reaction Lot # [id number] Given 04/15/2016 Pneumococcal 23 Immunization Im inj completed, Pt [id number] Adult Or Immunosuppressed tolerated well Patient 70489 Given 03/25/2015 Prevnar 13 Pneumococal Im inj completed, Pt [id number] Conjugate Vaccine tolerated well 47906 Given 07/05/2012 Zoster (Zostavax) Given At Pharmacy RA/222 76307 Given 09/17/2011 Tdap (Adacel) Ages 7 And Above Only 37339 Given 12/14/2004 Afluria Or Fluvirin Flu Vac Intramuscular 42010 Given 09/22/2003 Tetanus And Diptheria Toxoids For Adult Use-preservative free Vital Signs Date Vital Result Comment 07/11/2017 Body Temperature 98.1 F Weight 186.00 [...] H/L Range Note Laboratory test finding 07/11/2017 Esr <pending> CRP (C-Reactive) <pending> TSH <pending> Vit D 25Oh <pending> Laboratory test finding 07/11/2017 Uric Acid-FCMG <pending> Laboratory test finding 07/11/2017 Ebv Early Ag Igg-RL <pending> Ebv Nuclear Ag Igg-RL <pending> Ebv Vca Igg-RL <pending> Ebv Vca Igm-RL <pending> Anti-Streptolysn O -RL <pending> CBC with Auto Diff-fcmg 06/27/2017 WBC 8.3 K/uL 4.1-11.0 RBC 4.87 [...] K/uL 0.0-0.5 Abs Basophils 0.0 K/uL 0.0-0.3 Lyme Igm/Igg AB -RL 06/27/2017 Lyme Igm/Igg AB @ NEGATIVE (Neg) 1 Laboratory test finding 06/27/2017 Esr 46 mm/hr High 0-15 CRP (C-Reactive) 4.28 mg/dL High 0.00-0.75 CCP Antibody Igg Negative Negative Rheumatoid Factor <10.0 IU/mL 0.0-10.0 Comprehensive Met Panel-FCMG 06/27/2017 Sodium 142 mmol/L 135-146 2 Potassium 4.0 mmol/L 3.5-5.2 Chloride# 104 mmol/L 97-110 3 Carbon Dioxide 29 mmol/L 24-34 Glucose 104 mg/dL 70-105 BUN 15 mg/dL 6-26 Creatinine 0.8 mg/dL 0.5-1.4 Calcium 9.1 mg/dL 8.5-10.2 Total Protein 6.6 g/dL 6.0-8.0 Albumin 4.1 g/dL 3.6-4.9 Globulin 2.5 g/dL 2.0-3.5 A/G Ratio 1.6 Ratio 1.0-2.2 Total Bilirubin 0.5 mg/dL 0.1-1.3 Alkaline Phosphatase 66 U/L 24-140 Alt 12 U/L 3-42 Ast 13 U/L 8-42 Christina Egfr >60 >60 4 Non Christina Egfr >60 >60 5 Anion Gap 9 mmol/L 5-15 6 Sravanthi Screen With Reflex-FCMG 06/27/2017 Sravanthi Screen NEGATIVE Negative dsDNA IgG 0.90 Negative 7 Hemoglobin A1c 04/08/2017 Hemoglobin A1c 5.4 % 4.1-5.9 8 Estimated Average Glucose Calc 108 mg/dL 71-140 8 Laboratory test finding 04/08/2017 PSA 2.010 ng/mL 0.000-4.000 8, 9 CBC With Auto Diff 04/08/2017 WBC 5.5 K/uL 4.1-11.0 8 RBC 4.99 M/uL 4.60-6.10 8 Hemoglobin 14.9 gm/dL 13.5-18.0 8 Hematocrit 43.7 % 41.0-53.0 8 MCV 87.6 fL 80.0-97.0 8 MCH 30.0 pg 27.0-32.0 8 MCHC 34.2 g/dL 32.0-36.0 8 RDW 13.7 % 11.5-14.5 8 PLT Count 221 K/ul 140-400 8 MPV 8.2 FL 7.1-10.7 8 Neutrophil 42.9 % 35.0-75.0 8 Lymphocyte 42.7 % 16.0-52.0 8 Monocyte 9.7 % 2.0-10.0 8 Eosinophil 4.2 % 0.0-5.0 8 Basophil 0.5 % 0.0-4.0 8 Abs Neutrophils 2.4 K/uL 2.1-8.0 8 Abs Lymphocytes 2.4 K/uL 0.8-5.5 8 Abs Monocytes 0.5 K/uL 0.1-1.0 8 Abs Eosinophils 0.2 K/uL 0.0-0.5 8 Abs Basophils 0.0 K/uL 0.0-0.3 8 Laboratory test finding 04/08/2017 TSH 2.43 uIU/mL 0.35-4.94 8 Free T4 0.96 ng/dL 0.70-1.48 8 Basic ([facility]) 04/08/2017 Sodium 142 mmol/L 135-146 8, 10 Potassium 3.9 mmol/L 3.5-5.2 8 Chloride# 105 mmol/L 97-110 8, 11 Carbon Dioxide 30 mmol/L 24-34 8 Glucose 109 mg/dL High 70-105 8 BUN 17 mg/dL 6-26 8 Creatinine 0.9 mg/dL 0.5-1.4 8 Calcium 9.1 mg/dL 8.5-10.2 8 Non Christina Egfr >60 >60 8, 12 Christina Egfr >60 >60 8, 13 Anion Gap 7 mmol/L 5-15 8, 14 Lipid 04/08/2017 Cholesterol 171 mg/dL 50-199 8 Triglycerides 100 mg/dL 30-200 8 HDL 51 mg/dL 29-71 8, 15 Chol/ HDL Ratio 3.4 ratio Low 4.0-6.7 8 VLDL 20 mg/dL 2-29 8 LDL (Calc) 100 mg/dL High 20-99 8, 16 Basic ([facility]) 10/06/2016 Sodium 142 mmol/L 135-146 8, 17 Potassium 4.0 mmol/L 3.5-5.2 8 Chloride# 107 mmol/L 97-110 8, 18 Carbon Dioxide 27 mmol/L 24-34 8 Glucose 114 mg/dL High 70-105 8 BUN 24 mg/dL 6-26 8 Creatinine 0.9 mg/dL 0.5-1.4 8 Calcium 9.0 mg/dL 8.5-10.2 8 Non Christina Egfr >60 >60 8, 19 Christina Egfr >60 >60 8, 20 Anion Gap 8 mmol/L 7-16 8, 21 CBC With Auto Diff 10/06/2016 WBC 5.8 K/uL 4.1-11.0 8 RBC 4.99 M/uL 4.60-6.10 8 Hemoglobin 14.5 gm/dL 13.5-18.0 8 Hematocrit 44.3 % 41.0-53.0 8 MCV 88.8 fL 80.0-97.0 8 MCH 29.0 pg 27.0-32.0 8 MCHC 32.7 g/dL 32.0-36.0 8 RDW 14.1 % 11.5-14.5 8 PLT Count 199 K/ul 140-400 8 Neutrophil 42.0 % 35.0-75.0 8 Lymphocyte 44.4 % 16.0-52.0 8 Monocyte 9.5 % 2.0-10.0 8 Eosinophil 3.4 % 0.0-5.0 8 Basophil 0.7 % 0.0-4.0 8 Abs Neutrophils 2.4 K/uL 2.1-8.0 8 Abs Lymphocytes 2.6 K/uL 0.8-5.5 8 Abs Monocytes 0.5 K/uL 0.1-1.0 8 Abs Eosinophils 0.2 K/uL 0.0-0.5 8 Abs Basophils 0.0 K/uL 0.0-0.3 8 Lipid 10/06/2016 Cholesterol 182 mg/dL 50-199 8 Triglycerides 99 mg/dL 30-150 8 HDL 53 mg/dL 40-71 8, 22 Chol/ HDL Ratio 3.4 ratio Low 4.0-6.7 8 VLDL 20 mg/dL 2-29 8 LDL (Calc) 109 mg/dL 20-129 8, 23 Laboratory test finding 10/06/2016 TSH 3.21 uIU/mL 0.35-4.94 8 Free T4 0.77 ng/dL 0.70-1.48 8 Laboratory test finding 04/08/2016 PSA 0.880 ng/mL 0.000-4.000 8, 24 Basic (BMP) 04/08/2016 Sodium 137 mmol/L 134-142 8 Potassium 4.2 mmol/L 3.5-5.2 8 Chloride 105 mmol/L 97-109 8 Carbon Dioxide 27 mmol/L 24-34 8 Glucose 100 mg/dL 70-105 8 BUN 16 mg/dL 6-26 8 Creatinine 0.8 mg/dL 0.5-1.4 8 Calcium 8.8 mg/dL 8.5-10.2 8 Anion Gap 9 mmol/L 6-14 8 Non Christina Egfr >60 >60 8, 25 Christina Egfr >60 >60 8, 26 Laboratory test finding 04/08/2016 TSH 2.08 uIU/mL 0.35-4.94 8 Free T4 0.84 ng/dL 0.70-1.48 8 CBC With Auto Diff 04/08/2016 WBC 5.0 K/uL 4.1-11.0 8 RBC 4.89 M/uL 4.60-6.10 8 Hemoglobin 14.5 gm/dL 13.5-18.0 8 Hematocrit 42.9 % 41.0-53.0 8 MCV 87.7 fL 80.0-97.0 8 MCH 29.6 pg 27.0-32.0 8 MCHC 33.7 g/dL 32.0-36.0 8 RDW 13.5 % 11.5-14.5 8 PLT Count 208 K/ul 140-400 8 Neutrophil 41.4 % 35.0-75.0 8 Lymphocyte 45.5 % 16.0-52.0 8 Monocyte 8.8 % 2.0-10.0 8 Eosinophil 3.3 % 0.0-5.0 8 Basophil 1.0 % 0.0-4.0 8 Abs Neutrophils 2.1 K/uL 2.1-8.0 8 Abs Lymphocytes 2.3 K/uL 0.8-5.5 8 Abs Monocytes 0.4 K/uL 0.1-1.0 8 Abs Eosinophils 0.2 K/uL 0.0-0.5 8 Abs Basophils 0.0 K/uL 0.0-0.3 8 Lipid 04/08/2016 Cholesterol 161 mg/dL 50-199 8 Triglycerides 56 mg/dL 30-150 8 HDL 48 mg/dL 40-71 8, 27 Chol/ HDL Ratio 3.4 ratio Low 4.0-6.7 8 VLDL 11 mg/dL 2-29 8 LDL (Calc) 102 mg/dL 20-129 8, 28 Laboratory test finding 02/24/2015 Thyroid Stim Hormone 2.47 uIU/mL 0.36- 3.74 Free T4 0.87 ng/dL 0.76-1.46 Lipid Panel 02/24/2015 Cholesterol 178 mg/dL <200 29 Triglycerides 66 mg/dL <150 30 HDL Cholesterol 60 mg/dL >40 31 LDL-Cholesterol 105 mg/dL < 129 32 Laboratory test finding 02/24/2015 Prostate Specific Antigen 1.50 ng/mL 33 CBC With Auto Diff 02/24/2015 White Blood [...] % 33.0-73.0 Lymph % 44.0 % 17.0-56.0 Island % 7.7 % 0.0-10.0 Eo% 3.5 % 0.0-5.0 Bas% 0.8 % 0.1-1.0 Neut# 2.16 K/uL 1.8-7.0 Lymph # 2.16 K/uL 1.8-7.0 Island # 0.38 K/uL 0.0-0.8 Eos # 0.17 K/uL 0.0-0.5 Baso # 0.04 K/uL Low 0.1-0.2 BMP (Basic) 02/24/2015 Glucose 101 mg/dL 74-106 BUN 11 mg/dL 7-18 Creatinine 0.9 mg/dL 0.6-1.3 Glom Filtration Rate, Estimate >60 mL/min >60 If >60 mL/min >60 34 BUN/Creat 12.2 ratio Sodium 140 mmol/L 136-145 Potassium 3.9 mmol/L 3.5-5.1 Chloride 106 mmol/L 98-107 Carbon Dioxide 30 mmol/L 21-32 Anion Gap 4 mEq/L Low 8-16 Calcium 8.2 mg/dL Low 8.5-10.1 CBC With Auto Diff 07/12/2014 WBC 4.9 K/uL 4.1-11.0 35 RBC 4.94 M/uL 4.60-6.10 35 Hemoglobin 14.8 gm/dL 13.5-18.0 35 Hematocrit 44.5 % 41.0-53.0 35 MCV 90.0 fL 80.0-97.0 35 MCH 29.9 pg 27.0-32.0 35 MCHC 33.3 g/dL 32.0-36.0 35 RDW 14.0 % 11.5-14.5 35 PLT Count 198 K/ul 140-400 35 Neutrophil 46.7 % 35.0-75.0 35 Lymphocyte 40.8 % 16.0-52.0 35 Monocyte 8.4 % 2.0-10.0 35 Eosinophil 3.5 % 0.0-5.0 35 Basophil 0.6 % 0.0-4.0 35 Abs Neutrophils 2.3 K/uL 2.1-8.0 35 Abs Lymphocytes 2.0 K/uL 0.8-5.5 35 Abmon 0.4 K/uL 0.1-1.0 35 Abs Eosinophils 0.2 K/uL 0.0-0.5 35 Abs Basophils 0.0 K/uL 0.0-0.3 35 Basic (BMP) 07/12/2014 Sodium 138 mmol/L 134-142 35 Potassium 4.1 mmol/L 3.5-5.2 35 Chloride 104 mmol/L 97-109 35 Carbon Dioxide 29 mmol/L 24-34 35 Glucose 101 mg/dL 70-105 35 BUN 17 mg/dL 6-26 35 Creatinine 0.9 mg/dL 0.5-1.4 35 Calcium 9.1 mg/dL 8.5-10.2 35 Anion Gap 9 mmol/L 6-14 35 Non Christina Egfr >60 >60 35, 36 Christina Egfr >60 >60 35, 37 Laboratory test finding 07/12/2014 TSH 2.64 uIU/mL 0.35-4.94 35 Free T4 0.84 ng/dL 0.70-1.48 35 Lipid 07/12/2014 Cholesterol 175 mg/dL 50-199 35 Triglycerides 52 mg/dL 30-150 35 HDL 55 mg/dL 40-71 35, 38 Chol/ HDL Ratio 3.2 ratio Low 4.0-6.7 35 VLDL 10 mg/dL 2-29 35 LDL (Calc) 110 mg/dL 20-129 35, 39 Laboratory test finding 09/28/2013 % Baso. 1.1 % 0.0-2.0 % Eos. 3.7 % 0.0-4.0 % Lymph 42 % 20-44 % Island 7.6 % 2.0-10.0 % Leanna 46 % Low 50-70 Absolute Baso. 0.1 K/ul 0.0-0.3 Absolute Eos. 0.2 K/ul 0.0-0.5 Absolute Lymph. 2.6 K/ul 0.8-4.8 Absolute Island. 0.5 K/ul 0.1-1.0 Absolute Leanna. 2.86 K/ul [...] 0.0-4.0 % Lymph 41 % 20-44 % Island 9.8 % 2.0-10.0 % Leanna 46 % Low 50-70 Absolute Baso. 0.1 K/ul 0.0-0.3 Absolute Eos. 0.2 K/ul 0.0-0.5 Absolute Lymph. 2.5 K/ul 0.8-4.8 Absolute Island. 0.6 K/ul 0.1-1.0 Absolute Laenna. 2.81 K/ul 2.05-7.63 BUN 14.0 mg/dL 9.0-21.0 [...] 14.6 gm/dL 12.8-17.0 If >60 mL/min >60 40 Lymph # 2.60 K/uL 1.2-4.0 Lymph % 36.0 % 17.0-56.0 Magnesium 1.9 mg/dL 1.7-2.3 Mean Cell Volume 88.6 fl 80.0-96.0 Mean Corpuscular HGB 30.3 pg 27.0-33.0 Mean Corpuscular HGB Conc 34.2 g/dL 31.7-36.0 Mean Platelet Volume 10.7 fL High 6.6-10.6 Island # 0.61 K/uL High 0.0-0.6 Island % 8.4 % 0.0-10.0 Neut# 3.81 K/uL 1.8-7.0 Neut% 52.8 % 33.0-73.0 Platelet Count 233 K/uL 150-400 Potassium 3.9 mmol/L 3.5-5.1 Prostate-Specific Antigen 0.76 ng/mL 0.0-4.0 41 Red Blood Count 4.82 M/uL 4.20-5.80 Red Cell Distri Width %CV 13.4 % 11.6-15.8 Red Cell Distri Width SD 42.7 fl 36-51 Sodium 145 mmol/L 136-145 Thyroid Stim Hormone 3.10 uIU/mL 0.49-4.67 White Blood Count 7.2 K/uL 3.4-10.5 Testosterone,Free/Weakly 10/02/2012 Testosterone,%Free/Weakly 15.0 % 9.0- 46.0 Bound BND Testosterone,Free+Weakly Bound 40.0 ng/dL 40.0-250.0 42 Testosterone,Serum 267 ng/dL Low 348-1197 1 A Negative serologic test for Lyme Disease indicates no serologic evidence of infection with B burgdorferi at the time this specimen was collected. A repeat specimen should be collected in 2 to 4 weeks if clinically indicated. Unless otherwise specified, testing performed by [facility] [address] [place] [id number] 2 Updated reference range on new analyzer 3 Updated reference range on new analyzer 4 Concerning GFR Guidelines for Americans: Normal function or mild renal disease, if clinically at risk: >/=60 mL/min Moderately decreased: 30-59 Severely decreased: 15-29 Renal failure: <15 5 Concerning GFR Guidelines: Normal function or mild [...] drugs that are excreted by the kidneys. 6 Updated Reference Range 7 Interpretation: <0.5 -9 IU/ml Negative 10-15 IU/ml Equivocal >15.0 IU/ml Positive 8 SCHEDULE 1 WEEK PRIOR TO NEXT VISIT 9 Beginning 04/18/06 PSA values assayed at [facility] uses chemiluminescence methodology manufactured by [employer] for use on the DXI analyzer. Values obtained with different assay methods or kits can not be used interchangeably. Serum PSA measurement is not an absolute test for malignancy. The PSA value should be used in conjunction with information available from clinical evaluation and other diagnostic procedures. 10 Updated reference range on new analyzer 11 Updated reference range on new analyzer 12 Concerning GFR Guidelines: Normal function or mild [...] drugs that are excreted by the kidneys. 13 Concerning GFR Guidelines for Americans: Normal function or mild renal disease, if clinically at risk: >/=60 mL/min Moderately decreased: 30-59 Severely decreased: 15-29 Renal failure: <15 14 Updated Reference Range 15 Per NCEP ATP III Guidelines: Results lower than 40 mg/dL are suggestive of increased risk for coronary artery disease. Results > or=to 60 mg/dL are considered a negative risk factor. 16 Per NCEP ATP III Guidelines: Normal Population <130 Patients with medical conditions: CHD/DM Optimal: <100 Borderline high: 130-159 High: 160-189 Very high: >189 17 Updated reference range on new analyzer 18 Updated reference range on new analyzer 19 Concerning GFR Guidelines: Normal function or mild [...] drugs that are excreted by the kidneys. 20 Concerning GFR Guidelines for Americans: Normal function or mild renal disease, if clinically at risk: >/=60 mL/min Moderately decreased: 30-59 Severely decreased: 15-29 Renal failure: <15 21 Updated reference range on new analyzer 22 Per NCEP ATP III Guidelines: Results lower than 40 mg/dL are suggestive of increased risk for coronary artery disease. Results > or=to 60 mg/dL are considered a negative risk factor. 23 Per NCEP ATP III Guidelines: Normal Population <130 Patients with medical conditions: CHD/DM Optimal: <100 Borderline high: 130-159 High: 160-189 Very high: >189 24 Beginning 04/18/06 PSA values assayed at [facility] uses chemiluminescence methodology manufactured by [employer] for use on the DXI analyzer. Values obtained with different assay methods or kits can not be used interchangeably. Serum PSA measurement is not an absolute test for malignancy. The PSA value should be used in conjunction with information available from clinical evaluation and other diagnostic procedures. 25 Concerning GFR Guidelines: Normal function or mild [...] drugs that are excreted by the kidneys. 26 Concerning GFR Guidelines for Americans: Normal function or mild renal disease, if clinically at risk: >/=60 mL/min Moderately decreased: 30-59 Severely decreased: 15-29 Renal failure: <15 27 Per NCEP ATP III Guidelines: Results lower than 40 mg/dL are suggestive of increased risk for coronary artery disease. Results > or=to 60 mg/dL are considered a negative risk factor. 28 Per NCEP ATP III Guidelines: Normal Population <130 Patients with medical conditions: CHD/DM Optimal: <100 Borderline high: 130-159 High: 160-189 Very high: >189 29 Reference Guidelines*: Desirable: ........... < 200 mg/dL Borderline High: ..... 200-239 mg/dL High: ................ >=240 mg/dL * The National Cholesterol Education Program (NCEP) 30 Reference Guidelines*: Normal: ............. < 150 mg/dL Borderline High: .... 150-199 mg/dL High: ............... 200-499 mg/dL Very High: .......... > 500 mg/dL * Source: National Cholesterol Education Program (NCEP) 31 Reference Guidelines*: Low HDL: ..... < 40 mg/dL Normal: ..... 40-60 mg/dL Desirable: ... > 60 mg/dL *The National Cholesterol Education Program(NCEP) 32 Reference Guidelines*: Optimal:........... <100 mg/dL Near Optimal....... 100-129 mg/dL Borderline High.... 130-159 mg/dL High............... 160-189 mg/dL Very High.......... >=190 mg/dL * Source: National Cholesterol Education Program (NCEP) 33 THIS ASSAY IS NOT INTENDED A CANCER SCREENING TEST The concentration of PSA in a given specimen, determined with assays from different manufacturers, can vary due to differences in assay methods and reagent specificity. Values obtained from different assay methods cannot be used interchangeably. 34 Note: Persistent reduction for 3 months or more in an eGFR <60 mL/min/1.73 m2 defines CKD. Patients with eGFR values >/=60 mL/min/1.73 m2 may also have CKD if evidence of persistent proteinuria is present. The original MDRD equation for estimated GFR is not valid for patients less than 18 years of age. Additional information may be found at www.kdoqi.org. 35 schedule 1 week prior to next visit 36 Concerning GFR Guidelines: Normal function or [...] 130-159 High: 160-189 Very high: >189 40 Note: Persistent reduction for 3 months or more in an eGFR <60 mL/min/ 1.73 m2 defines CKD. Patients with eGFR values >/=60 mL/min/1.73 m2 may also have CKD if evidence of persistent proteinuria is present. The original MDRD equation for estimated GFR is not valid for patients less than 18 years of age. Additional information may be found at www.kdoqi.org. 41 THIS ASSAY IS NOT INTENDED A CANCER SCREENING TEST The concentration of PSA in a given specimen, determined with assays from different manufacturers, can vary due to differences in assay methods and reagent specificity. Values obtained from different assay methods cannot be used interchangeably. 42 Performed at: - [facility] [address] [id number] Supervisor [employer]: Ro Gonzalez MD, Phone: [phone] Performed at: - [facility] [address] [id number] Supervisor [employer]: Bishop Sandra MD, Phone: [phone] Procedures Date CPT Code Description Status Comment 03/29/2017 Colonoscopy Completed Document: 03/29/17 - Colonoscopy 09/18/2015 36719 X-Ray Knee Complete Completed W/Obliques & Tunnel And/Or Standing Views Encounters Type Date Location Provider CPT E/M Dx Office Visit 06/27/2017 8:15a [facility] [address] M25.512 M25.511 M25.551 M25.552 M54.31 Z68.28 Office Visit 04/21/2017 10:00a [facility] [place] Panda [place] G0439 Z00.00 I10 N52.9 R73.09 M54.2 Z68.28 Office Visit 10/13/2016 9:00a [facility] [address] I10 E05.10 E78.1 N52.9 K21.9 D12.6 H91.93 R73.09 Office Visit 04/15/2016 8:00a [facility] [address] I10 E05.10 E78.1 N52.9 K21.9 D12.6 H91.93 Z12.5 Z00.00 Z23 Z68.27 Office Visit 10/13/2015 8:00a [facility] [address] I10 E05.10 E78.1 N52.9 K21.9 D12.6 H91.93 Office Visit 09/18/2015 11:00a [facility] [address] M54.2 M25.562 Office Visit 03/25/2015 2:00p [facility] [place] G[address]39 Z00.00 Z12.5 I10 E05.10 E78.1 N52.9 K21.9 D12.6 Z23 Z68.28 Office Visit 07/19/2014 9:45a [facility] [address] 401.1 242.10 272.1 607.84 530.81 211.3 723.4 724.4 Plan of Care Future Appointment(s):04/24/2018 8:30 am - Treasure Panda PA at [facility]2017 8:30 am - Treasure Panda PA at [facility]07/11/2017 - Treasure Panda PAM25.512 Pain in LEFT shoulderComments:Previous lab workup with elevasted ESR, CRPWill check labs today and treat accordinglyContinue naproxen - hold aspirinIce/heatCall with questions/concernsFollow up:PrnM25.511 Pain in RIGHT shoulderComments:Plan as excgqP10.551 Pain in RIGHT hipComments:Plan as bahvfU41.552 Pain in LEFT hipComments:Plan as xmmapB96.83 Other fatigueComments: WIll check labs pgmnrG07.28 Body mass index (BMI) 28.0-28.9, adult
[2017-08-05 15:30] VITALS: BP 123/81
--- NOTE | 2017-08-05 15:59 | UC ---
Skin Complaint HPI - HPI Summary HPI Summary: pt c/o gradual onset of "rash on right upper buttock with pain that radiates to RLQ and "some of the same rash" to right suprapubic area. Pt is on daily prednisone for Poly Myalgia Rheumatica. Pt also c/o RLQ discomfort that is intermittent. No b[ain with BM, no change in BM, pattern, consistency or frequency no fever or chills, nausea, or vomiting - History of Current Complaint Chief Complaint: UCGeneralIllness Time Seen by Provider: 08/05/17 15:21 Stated Complaint: SKIN COMPLAINT Hx Obtained From: Patient Onset/Duration: Gradual Onset, Lasting Days, Still Present Skin Exposure Onset/Duration: Days Ago Timing: Constant Onset Severity: Mild Current Severity: Moderate Pain Intensity: 3 Location: Discrete Character: Redness, Raised, Painful Aggravating Factor(s): Touch Alleviating Factor(s): Nothing Associated Signs & Symptoms: Positive: Rash - Allergy/Home Medications Allergies/Adverse Reactions: Allergies Allergy/AdvReac Type Severity Reaction Status Date / Time morphine Allergy Rash And Verified 08/05/17 15:10 Itching Home Medications: Home Medications Glucosam/Chond/Collagen/Hyalur [Glucosamine Chondroitin Cap] 1 cap PO DAILY [History Confirmed 08/05/17] Krill Oil 500 mg PO DAILY 08/05/17 [History Confirmed 08/05/17] L.acidoph,Paracasei, B.lactis [Probiotic] 1 each PO DAILY 08/05/17 [History Confirmed 08/05/17] Multivit-Min/FA/Lycopen/Lutein [Men 50 Plus Multivitamin Tab] 1 each PO DAILY [History Confirmed 08/05/17] Naproxen Sodium [Aleve] 220 mg PO DAILY 08/05/17 [History Confirmed 08/05/17] Psyllium CHRISTY* [Metamucil CHRISTY*] 1 teasp PO DAILY 08/05/17 [History Confirmed ] Tumeric 1 tab PO DAILY 08/05/17 [History Confirmed 08/05/17] predniSONE TAB* [Deltasone 10 MG TAB*] 10 mg PO BID 08/05/17 [History Confirmed 08/05/17] Review of Systems Constitutional: Fatigue Skin: Rash Eyes: Negative ENT: Negative Respiratory: Negative Cardiovascular: Negative Gastrointestinal: Negative Genitourinary: Negative Motor: Negative Neurovascular: Negative Musculoskeletal: Negative Neurological: Negative Psychological: Negative Is Patient Immunocompromised?: No All Other Systems Reviewed And Are Negative: Yes PMH/Surg Hx/FS Hx/Imm Hx Previously Healthy: Yes - Surgical History Surgical History: Yes Surgery Procedure, Year, and Place: L4-5 spinal surgery x 2 in 1995. Thyroidectomy 1994. R knee ACL repair 2009 - Family History Known Family History: Negative: Hypertension - Social History Occupation: Retired Lives: With Family Alcohol Use: Daily Alcohol Amount: "a drink or 2 every day" Substance Use Type: None Smoking Status (MU): Never Smoked Tobacco Have You Smoked in the Last Year: No Physical Exam Triage Information Reviewed: Yes Appearance: Well-Appearing Vital Signs: Initial Vital Signs Temp 98.2 F 08/05/17 15:21 Pulse 57 08/05/17 15:21 Resp 16 08/05/17 15:21 BP 123/81 08/05/17 15:21 Pulse Ox 100 08/05/17 15:21 Vital Signs Reviewed: Yes Eye Exam: Normal ENT: Positive: Hearing grossly normal Dental Exam: Normal Neck exam: Normal Respiratory Exam: Normal Cardiovascular Exam: Normal Abdominal Exam: Normal Abdomen Description: Positive: Nontender Musculoskeletal Exam: Normal Neurological Exam: Normal Psychological Exam: Normal Skin: Positive: rashes - vessiclur rash on right upper buttock, Course/Dx - Differential Diagnoses - Skin Complaint Differential Diagnoses: Cellulitis, Drug Rash, Varicella Zoster - Diagnoses Provider Diagnoses: shingles. 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 - Billing Disposition and Condition Condition: STABLE Disposition: Home
== END 2017-08-05 16:15 | disposition home or self-care (01) ==
LOC: UCCORT 14:29
DX: B02.9 Zoster without complications (principal); R10.31 Right lower quadrant pain; Z88.5 Allergy status to narcotic agent; Z79.52 Long term (current) use of systemic steroids
CPT/HCPCS: 99212; G0463

== ENCOUNTER → 2018-03-08 12:24 | Day surgery (SDC) | payer MEDICARE, OTHER ==
--- NOTE | 2018-03-01 16:47 | HP ---
PREOPERATIVE HISTORY AND PHYSICAL: DATE OF ADMISSION/SURGERY: 03/08/18 DATE OF OFFICE VISIT: 02/23/18 ATTENDING SURGEON: Dr. Khadra Cook.* (DICTATED BY SILVIA DE LA GARZA) PROCEDURE: Left shoulder arthroscopic rotator cuff repair, decompression, debridement, and subpectoral biceps tenodesis. CHIEF COMPLAINT: Left shoulder. HISTORY OF PRESENT ILLNESS: Isidro is a 72-year-old male who presents to the clinic for left shoulder pain due to a rotator cuff tear and biceps tendinitis. He has failed conservative measures and therefore agreed to undergo a left shoulder arthroscopic rotator cuff repair, decompression, debridement, and subpectoral biceps tenodesis with Dr. Cook on 03/08/18. PAST MEDICAL HISTORY: GERD, polymyalgia rheumatica, hypertension, and bigeminy with surgery. PAST SURGICAL HISTORY: Colonoscopy, thyroidectomy, lumbar laminectomy x2, and right knee scope. The patient denies prior complications with anesthesia besides the bigeminy. MEDICATIONS: 1. Aspirin 81 mg 1 by mouth daily. 2. Calcium with vitamin D 1 by mouth daily. 3. Lactobacillus 1 daily. 4. Multivitamin 1 daily. 5. [place]-3 one daily. 6. Saw palmetto 1 twice a day. 7. Cialis 25 mg 1 by mouth as needed. 8. Lisinopril 30 mg 1 by mouth every day. ALLERGIES: MORPHINE. FAMILY HISTORY: Denies current family history. SOCIAL HISTORY: He is a former smoker, quit in 1977. He denies alcohol consumption. He denies illegal drug use. REVIEW OF SYSTEMS: A 14-point review of systems was reviewed with the patient. Positive for current complaint, otherwise negative. Denies fever, chills, history of DVT or PE, history of bleeding disorder, or chest pain or shortness of breath. PHYSICAL EXAMINATION GENERAL: A 72-year-old, well-developed, well-nourished male, in no acute distress. VITAL SIGNS: Height 68, weight 186, blood pressure 123/82, respiratory rate 16 , BMI 28.3. HEENT: Normocephalic, atraumatic. PERRLA. Throat clear. NECK: Supple. PULMONARY: Lungs are clear to auscultation bilaterally. No wheezing, rhonchi, or rales. CARDIO: Regular rate and rhythm. S1, S2. No murmurs, gallops, or rubs. No edema. ABDOMEN: Positive bowel sounds. Soft, nontender. NEURO: Alert and oriented x3. Cranial nerves grossly intact. MUSCULOSKELETAL: Left upper extremity: Skin is intact. No warmth or erythema. Tenderness over the subacromial space. Forward flexion and abduction to 175. External rotation 55, internal rotation to lumbar spine. +4/5 strength to rotator cuff testing with pain. Positive impingement, Speed, Elias-Speedy , [place]. +2 radial pulses. Sensation intact to light touch distally. DIAGNOSTIC STUDIES: MRI revealed high-grade partial thickness tear of the inferior surface of the supraspinatus tendon. IMPRESSION: Left shoulder rotator cuff tear and biceps tendinitis. PLAN: The patient is scheduled to undergo a left shoulder arthroscopic rotator cuff repair, decompression, debridement, and subpectoral biceps tenodesis with Dr. Cook on 03/08/18. He will follow up 10 to 14 days postop for followup and suture removal. Percocet will be used for postop pain management. SILVIA DE LA GARZA [id number]/[facility] #: [id number] MTDD
[~2018-03-08 12:24] MED LIST: Buffered Lidocaine 1% SYRIN* 1 ML/SYRINGE INTRADERM ONE; Bupivacaine 0.5% SDV PF* 30ML VIAL ONE; Dexamethasone TAB* 4 MG ONE; Dexamethasone TAB* 4 MG PO ONE; DiMENhydriNATE IV* 50 MG/ML VIAL IV PUSH PRN; Famotidine IV* 10 MG/ML 2 ML (20 mg) IV ONE; Famotidine IV* 10 MG/ML 2 ML (20 mg) ONE; HYDROmorphone INJ1* 1 MG/ML SYRINGE IV PRN; KETAMINE HCL* 50 MG/ML 10 ML VIAL ONE; Ketorolac INJ* 30 MG/ML 1 ML VIAL ONE; Lactated Ringers 1000 ML Bag* 1,000 ML IV SCH; Lidocaine 2% PF * 5 ML VIAL ONE; Midazolam* 1 MG/ML 5 ML VIAL (5 MG) ONE; Naloxone* 0.4 MG/ML 1 ML VIAL IV PRN; Ondansetron ODT TAB* 4 MG ONE; Ondansetron TAB* 4 MG PO ONE; PROCHLORPERAZINE INJ 5 MG/ML 2 ML VIAL IV PRN; Propofol* 10 MG/ML 20 ML BTL ONE; Ropivacaine* 2 MG/ML 20 ML VIAL (0.2%) ONE; Scopolamine 1.5 mg* PATCH TRANSDERM PRN; Scopolamine PATCH Remove* 1 NOTE MISC PATCH OFF ONE; ceFAZolin 2 GM PREMIX in ORs 2 GM/50 ML BAG IVPB ONE; fentaNYL* 50 MCG/ML 2 ML VIAL (100 MCG VIAL) IV PRN; fentaNYL* 50 MCG/ML 2 ML VIAL (100 MCG VIAL) ONE; oxyCODONE/Acetamin 5/325 MG* TAB PO PRN
[2018-03-08 18:52] VITALS: BP 149/90
--- NOTE | 2018-03-13 23:20 | OP ---
CC: PCP, SILVIA Bonilla * DATE OF OPERATION: 03/08/18 - MERGED WITH [facility] DATE OF : 49 SURGEON: Khadra Cook MD PERSONAL COMPUTER SPECIALIST: SILVIA Donald. An physiotherapist's assistant was needed for the entirety of the case to help with positioning, retraction, and was utilized throughout all portions of the case. ANESTHESIOLOGIST: Dr. Zavala. ANESTHESIA: General with interscalene block. PRE-OP DIAGNOSIS: Left shoulder high grade partial thickness tear of the rotator cuff and bicipital tendinosis and tendinitis. POST-OP DIAGNOSES: Full thickness tear of the rotator cuff with bicipital tendinosis and tendinitis. OPERATIVE PROCEDURE: 1. Extensive glenohumeral debridement. 2. Subacromial decompression with acromioplasty. 3. Rotator cuff repair in double row fashion. 4. Subpectoral biceps tenodesis. COMPLICATIONS: None. ESTIMATED BLOOD LOSS: Minimal. INDICATIONS: Isidro Zuluaga is a 72-year-old male, who has had polymyalgia rheumatica. He has a complicated medical history with a suspected partial tear of the rotator cuff. Because of his complicated medical history, the plan would be for a REGENETEN patch, almost there is a full thickness tear. He has elected to proceed with surgical treatment after obtaining preoperative medical risks optimization; risks include but not limited to bleeding, infection, damage to nerves, vessels, surrounding structures, wound nonhealing, persistent pain, need for surgery, scarring, stiffness, incomplete relief of symptoms, risks of anesthesia. DESCRIPTION OF PROCEDURE: The patient was greeted in the preoperative area by the attending surgeon. Correct extremity was marked, consent was confirmed. The patient underwent interscalene nerve block, after which he was brought back to the operating suite and he was placed in supine position on the operating table. He then underwent general anesthesia with endotracheal intubation. He was then placed in the left lateral decubitus position with all bony prominences padded. He was secured with the peg board and an axillary roll was placed. The left arm was draped unsterile with 10 pounds traction. The left shoulder was then prepped and draped in usual sterile fashion beginning with chlorhexidine soap, scrub and alcohol wipe and a final prep with ChloraPrep. After appropriate surgical pause indicating side, site, procedure, and administration of antibiotics, a standard postero-lateral portal was made sharply with #11 blade. The scope was introduced into the joint. The joint was examined. The glenohumeral joint had minimal arthritic changes. The superior labrum was obviously torn. The biceps was subluxed anteriorly. The anterior portal was made in an outside-in fashion. The biceps was then tenotomized using the arthroscopic scissors. Inferior recess was intact. There was abundant synovitis inferiorly. The undersurface of the rotator cuff had what appeared to be high grade partial thickness tearing except for one spot that looked like a full thickness tear. The biceps was then tenotomized. The inferior recess was intact. The anterior, posterior, and superior labrum were debrided back. Attention was then directed to the subacromial space. With the scope positioned in the subacromial space, the shaver was used to debride back the abundant bursa that was present. The rotator cuff appeared to have one area where there was a full thickness tear. Decision was made to complete the tear because there was what appeared to look like a full thickness tear inferiorly and I do not think a REGENETEN patch would have done enough in his case. The tear was completed and exposed. Attention was directed to the subacromial space. The undersurface of the acromion was skeletonized, a 4-0 oval maya was used to do it and an electrocautery device. Bone quality was quite good. Attention was directed to the rotator cuff. The tear was completed and the electrocautery device was used to skeletonize the greater tuberosity. A 4-0 oval maya was then used to do an acromioplasty through separate stab incisions. Two 4.75 Heal[place]ils were then placed with excellent purchase. These were then tied down using arthroscopic knot- tying technique and two Multi-Fixes were then placed for lateral row fixation, this helped to restore the rotator cuff appropriately the footprint as well as compress it. The final images were obtained. The wounds were copiously irrigated with sterile saline. Attention was directed to the biceps. The bed was airplaned to the left side. The anterior aspect of the shoulder was prepped using ChloraPrep. A 15 blade was used to make the incision in line with the biceps. The soft tissues were carefully dissected to expose the pec tendon. Remainder of the dissection was done bluntly. The biceps were brought through the wound. The groove was then prepared in the usual fashion using electrocautery device, red ball rasp and osteotome to allow for bony bleeding bed. The Q-Fix was then deployed with excellent purchase. The sutures were then passed through the biceps in a Brian-Gerhard type configuration. The excess stump was excised. The biceps was shelved back into the wound and then tied down using knot tying. The wounds were then copiously irrigated. The portals were closed with 3-0 nylon, the anterior wound was closed with 3-0 Vicryl interrupted in a running fashion. Sterile dressings were applied. A Cryo/Cuff and UltraSling were applied. He was awoken from anesthesia and transferred to PACU in stable condition. POSTOPERATIVE PLAN: He will be nonweightbearing. He will be discharged on pain medication and antibiotics. DVT prophylaxis was considered but deferred due to no previous personal or family history. I will see the patient back in 10 to 14 days. [id number]/[facility] #: [id number] SADIE
== END | disposition home or self-care (01) ==
LOC: OR 12:24
PROVIDERS: ATTEND Orthopaedic Surgery
DX: S46.012D Strain of muscle(s) and tendon(s) of the rotator cuff of left shoulder, subsequent encounter (principal); M75.22 Bicipital tendinitis, left shoulder; M35.3 Polymyalgia rheumatica; K21.9 Gastro-esophageal reflux disease without esophagitis; I10 Essential (primary) hypertension; X58.XXXD Exposure to other specified factors, subsequent encounter; Z79.82 Long term (current) use of aspirin; Z87.891 Personal history of nicotine dependence
CPT/HCPCS: A9270-GY; C1713; J0690; J1885; J2250; J2704; J2795; J3010; J8540